=== PATIENT | male | born 1995 | race Caucasian/White ===

== ENCOUNTER 2020-07-04 10:29 | Emergency (ER) | payer BC ==
--- OUTSIDE RECORDS SUMMARY | 2020-07-04 10:32 | XMS REPORT | Continuity of Care Document ---
:1995 Author Organization [facility] t Address [address] [place] [address] Care Team Providers Name Role Phone Los CNC TECHNICIAN Attending Clinician Court PAC, S Attending Clinician Doctor Unassigned, Name Attending Clinician Unavailable Provider, Urgent Care Attending Clinician Unavailable Jillian HODGES M Attending Clinician Unavailable Lab, Fam Pob I Attending Clinician Unavailable Problems This patient has no known problems. Allergies, Adverse Reactions, Alerts This patient has no known allergies or adverse reactions. Medications This patient has no known medications. Procedures This patient has no known procedures. Encounters Start End Encounter Admission Attending Care Care Encounter Source Date/Time Date/Time Type Type Clinicians Facility Department ID 2020-05-26 2020-05-26 [facility] [id number] 18:51:00 21:06:00 [place] [id number] [place] [id number] [place] [id number] 2020-05-04 2020-05-[address] [facility] [id number] 16:51:00 17:21:00 [place] [id number] [place] [id number] [place] [id number] 2020-05-04 2020-05-04 Orders Doctor DEE [id number] 00:00:00 00:00:00 Only Unassigned, QUITA [id number] [place] [facility] [id number] 2020-02-05 2020-02-05 Urgent Provider, [facility] [id number] 15:19:42 15:47:23 [facility] [id number] Care [place] [id number] [place] [phone] nal 0[address] One 2019-10-30 2019-10-30 Telephone Tawnya Walsh [id number] 00:00:00 00:00:00 [place] [id number] [facility] [id number] 2019-10-28 2019-10-28 Laboratory Lab, [facility] [id number] 13:48:25 14:08:25 Only Fam Pob I Health [id number] [place] [id number] [place] [phone] nal 044 [address] 2019-10-28 2019-10-28 Letter Doctor DEE [id number] 00:00:00 00:00:00 (Out) Unassigned, QUITA [id number] [place] [facility] [id number] Results This patient has no known results.
[2020-07-04 11:53] LABS: Absolute Lymphocytes (CBC) 2.4 K/uL (0.7-4.9); Basophils % 0.1 % (0-1.3); Hematocrit 46.6 % (39.6-49.0); Lymphocytes % 15.3 % (15.3-44.8); MPV 7.6 fL (7.6-11.3); RBC Red Blood Cell Count 5.28 M/uL (4.33-5.43)
[2020-07-04 11:55] LABS: ALT/SGPT 96 U/L (12-78); AST/SGOT 12 U/L (15-37); Albumin 3.7 g/dL (3.4-5.0); Alkaline Phosphatase 73 U/L (45-117); BUN Blood Urea Nitrogen 18 mg/dL (7-18); Bicarbonate 28 mmol/L (21-32); Bilirubin Direct 0.1 mg/dL (0-0.2); Bilirubin Total 0.3 mg/dL (0.2-1.0); Glucose Level 91 mg/dL (74-106); Lipase 82 U/L (73-393); Potassium 3.7 mmol/L (3.5-5.1); Protein, Total 7.8 g/dL (6.4-8.2); Sodium Level 139 mmol/L (136-145)
[2020-07-04 11:56] LABS: Urine Blood Negative (Negative); Urine Glucose Negative (Negative); Urine Protein Negative (Negative); Urine Specific Gravity >=1.030 (1.005-1.030); Urine pH 5.5 (5.0-7.0)
[2020-07-04] MEDS ORDERED: MORPHINE 4 MG/ML SYR ONE (12:24)
[2020-07-04] MEDS ORDERED: ONDANSETRON 4 MG/2 ML VIAL ONE (12:24)
[2020-07-04] MEDS ORDERED: NA CHLORIDE 0.9% 1,000 ML ONE (12:24)
--- NOTE | 2020-07-04 12:55 | RAD REPORT ---
EXAM DESCRIPTION: CTAbdomen Pelvis W Contrast - 07/04/2020 12:20 pm CLINICAL HISTORY: Abdominal pain. ABD PAIN COMPARISON: CT ABD PELVIS W CONTRAST dated 01/29/2015 TECHNIQUE: Biphasic CT imaging of the abdomen and pelvis was performed with 100 ml non-ionic IV cont rast. All CT scans are performed using dose optimization technique as appropriate and may include automated exposure control or mA/KV adjustment according to patient size. FINDINGS: The lung bases are clear. The liver, spleen, pancreas, adrenal glands and kidneys are within normal limits. Cholecystectomy cli ps. No bowel obstruction, free air, free fluid or abscess. The appendix is not identified as a discrete structure, however, no secondary findings of appendicitis are identified. No evidence of significan t lymphadenopathy. No suspicious bony findings. IMPRESSION: No acute intra-abdominal or pelvic finding.
--- NOTE | 2020-07-04 13:31 | EDPHYS ---
Physician Documentation [facility] Name: Xavier Lindo Age: 24 yrs Sex: Male : 1995 Arrival Date: 07/04/2020 Time: 10:31 Bed 17 Private MD: Sanjiv Gayle E ED Physician Aminata Thurston HPI: 07/04 15:04 This 24 yrs old Male presents to ER via Ambulatory with complaints of kb Abdominal Pain, Nausea, feels like passing out. 15:04 Onset: The symptoms/episode began/occurred yesterday. kb 15:05 The patient presents with abdominal pain in the right upper quadrant. The symptoms do kb not radiate. Associated signs and symptoms: Pertinent positives: nausea, Pertinent negatives: constipation, diarrhea, fever, vomiting. The symptoms are described as constant. Modifying factors: The symptoms are alleviated by nothing, the symptoms are aggravated by nothing. Severity of pain: At its worst the pain was moderate in the emergency department the pain is unchanged. The patient has not experienced similar symptoms in the past. The patient has not recently seen a physician. Historical: - Allergies: 10:53 No Known Allergies; aa5 - Home Meds: 10:53 Prednisone Oral [Active]; aa5 - PMHx: 10:53 None; aa5 - PSHx: 10:53 Cholecystectomy; aa5 - Immunization history:: Adult Immunizations unknown. - Social history:: Smoking status: Reported history of juuling and/or vaping. ROS: 15:03 Constitutional: Negative for fever, chills, and weight loss, Cardiovascular: Negative kb for chest pain, palpitations, and edema, Respiratory: Negative for shortness of breath, cough, wheezing, and pleuritic chest pain, MS/Extremity: Negative for injury and deformity, Skin: Negative for injury, rash, and discoloration, Neuro: Negative for headache, weakness, numbness, tingling, and seizure. 15:03 Abdomen/GI: Positive for abdominal pain, nausea, Negative for vomiting, diarrhea. Exam: 15:04 Constitutional: This is a well developed, well nourished patient who is awake, alert, kb and in no acute distress. Head/Face: Normocephalic, atraumatic. Cardiovascular: Regular rate and rhythm with a normal S1 and S2. No gallops, murmurs, or rubs. No pulse deficits. Respiratory: Respirations even and unlabored. No increased work of breathing, no retractions or nasal flaring. Skin: Warm, dry with normal turgor. Normal color. MS/ Extremity: Pulses equal, no cyanosis. Neurovascular intact. Full, normal range of motion. Neuro: Awake and alert, GCS 15, oriented to person, place, time, and situation. Moves all extremities. Normal gait. 15:04 Abdomen/GI: Inspection: abdomen appears normal, Bowel sounds: normal, in all quadrants, Palpation: soft, in all quadrants, moderate abdominal tenderness, in the right upper quadrant and right lower quadrant. Vital Signs: 10:44 BP 152 / 95; Pulse 85; Temp 98.6; Pulse Ox 99% ; Weight 86.64 kg; Height 5 ft. 8 in. aa5 (172.72 cm); 11:57 BP 143 / 88; Pulse 81; Resp 17; Pulse Ox 96% ; rb3 12:42 BP 143 / 90; Pulse 85; Resp 17; Pulse Ox 96% ; rb3 13:40 BP 132 / 91; Pulse 79; Resp 17; Pulse Ox 97% ; rb3 10:44 Body Mass Index 29.04 (86.64 kg, 172.72 cm) aa5 MDM: 11:06 Patient medically screened. 15:03 Data reviewed: vital signs, nurses notes. Data interpreted: Pulse oximetry: on room air kb is 97 %. Interpretation: normal. Counseling: I had a detailed discussion with the patient and/or guardian regarding: the historical points, exam findings, and any diagnostic results supporting the discharge/admit diagnosis, lab results, radiology results, the need for outpatient follow up, a family practitioner, to return to the emergency department if symptoms worsen or persist or if there are any questions or concerns that arise at home. 15:04 Response to treatment: the patient's symptoms have resolved after treatment, the kb patient's pain is gone. 07/04 10:54 Order name: Basic Metabolic Panel 07/04 10:54 Order name: CBC with Diff 07/04 10:54 Order name: Hepatic Function 07/04 10:54 Order name: Lipase kb 07/04 11:55 Order name: Basic Metabolic Panel; Complete Time: 11:56 EDMS 07/04 11:55 Order name: Liver (Hepatic) Function; Complete Time: 11:56 EDUT 07/04 11:55 Order name: Lipase; Complete Time: 11:56 EDUT 07/04 11:56 Order name: CBC with Automated Diff; Complete Time: 11:56 EDUT 07/04 11:57 Order name: Urine Dipstick-Ancillary; Complete Time: 11:57 EDUT 07/04 11:57 Order name: CT Abd/Pelvis - IV Contrast Only kb 07/04 12:11 Order name: Abdomen ; Complete Time: 13:03 EDUT 07/04 10:54 Order name: IV Saline Lock; Complete Time: 11:30 kb 07/04 10:54 Order name: Labs collected and sent; Complete Time: 11:30 kb 07/04 10:54 Order name: Urine Dipstick-Ancillary (obtain specimen); Complete Time: 11:56 kb Administered Medications: 12:11 Drug: NS 0.9% 1000 ml Route: IV; Rate: 1000 ml; Site: right antecubital; rb3 12:12 Drug: morphine 4 mg Route: IVP; Site: right antecubital; rb3 12:12 Drug: Zofran (Ondansetron) 4 mg Route: IVP; Site: right antecubital; rb3 Disposition: 07/04/20 13:30 Discharged to Home. Impression: Upper abdominal pain, unspecified. - Condition is Stable. - Discharge Instructions: Abdominal Pain, Adult, Zbyg-is-Vkua. - Prescriptions for Bentyl 20 mg Oral Tablet - take 1 tablet by ORAL route every 6 hours As needed; 20 tablet. Zofran 4 mg Oral Tablet - take 1 tablet by ORAL route every 6 hours As needed; 20 tablet. - Medication Reconciliation Form, Thank You Letter, Antibiotic Education, Prescription Opioid Use form. - Follow up: Private Physician; When: 2 - 3 days; Reason: Recheck today's complaints, Continuance of care, Re-evaluation by your physician. Follow up: Emergency Department; When: As needed; Reason: Worsening of condition. Addendum: 07/07/2020 20:19 Co-signature as Attending Physician, Aminata Thurston MD. m a2 Signatures: Dispatcher [facility] Lona Mark FNP-[place] WALTER-Dayana Garcia, RN RN aa5 Aminata Thurston MD MD ma2 Tsering Martin, RN RN rb3 Corrections: (The following items were deleted from the chart) 07/04 13:46 13:30 07/04/2020 13:30 Discharged to Home. Impression: Upper abdominal pain, rb3 unspecified. Condition is Stable. Forms are Medication Reconciliation Form, Thank You Letter, Antibiotic Education, Prescription Opioid Use. Follow up: Private Physician; When: 2 - 3 days; Reason: Recheck today's complaints, Continuance of care, Re-evaluation by your physician. Follow up: Emergency Department; When: As needed; Reason: Worsening of condition. kb 15:06 15:04 Onset: The symptoms/episode began/occurred this morning, kb kb
--- NOTE | 2020-07-04 13:31 | ER ---
Nurse's Notes [facility] Name: Xavier Lindo Age: 24 yrs Sex: Male : 1995 Arrival Date: 07/04/2020 Time: 10:31 Bed 17 Private MD: Sanjiv Gayle E Diagnosis: Upper abdominal pain, unspecified Presentation: 07/04 10:44 Chief complaint: Patient states: Having abdominal pain that started 5--21. C/O Nausea, aa5 right flank pain that radiates to back. [place] like passing out this morning. Coronavirus screen: Client denies travel out of the [place] in the last 14 days. chills, nausea, Client presents with at least one sign or symptom that may indicate coronavirus-19. Standard/surgical mask placed on the client. Ebola Screen: No symptoms or risks identified at this time. Initial Sepsis Screen: Does the patient meet any 2 criteria? No. Patient's initial sepsis screen is negative. Does the patient have a suspected source of infection? No. Patient's initial sepsis screen is negative. Risk Assessment: Do you want to hurt yourself or someone else? Patient reports no desire to harm self or others. Onset of symptoms was July 03, 2020. 10:44 Method Of Arrival: Ambulatory aa5 10:44 Acuity: MURIEL 3 aa5 Historical: - Allergies: 10:53 No Known Allergies; aa5 - Home Meds: 10:53 Prednisone Oral [Active]; aa5 - PMHx: 10:53 None; aa5 - PSHx: 10:53 Cholecystectomy; aa5 - Immunization history:: Adult Immunizations unknown. - Social history:: Smoking status: Reported history of juuling and/or vaping. Screenin:05 Abuse screen: Denies threats or abuse. Nutritional screening: No deficits noted. rb3 Tuberculosis screening: No symptoms or risk factors identified. Fall Risk None identified. Assessment: 11:05 General: Appears in no apparent distress. Behavior is calm, cooperative, Reports chills rb3 for x 1 day. Denies fever. Pain: Complains of pain in epigastric area, right upper quadrant and left upper quadrant Pt. reports that it did radiate to the right low back, but the right flank pain has subsided. Neuro: Level of Consciousness is awake, alert, obeys commands, Oriented to person, place, time, situation. Cardiovascular: Patient's skin is warm and dry. Respiratory: Airway is patent Respiratory effort is even, unlabored, Respiratory pattern is regular, symmetrical. GI: Abdomen is non-distended, Reports diarrhea, nausea. : Denies burning with urination. 11:57 Reassessment: Patient appears in no apparent distress at this time. No changes from rb3 previously documented assessment. 12:12 Reassessment: Pt. went to CT. rb3 12:36 Reassessment: Patient appears in no apparent distress at this time. Patient and/or rb3 family updated on plan of care and expected duration. Pain level reassessed. Patient is alert, oriented x 3, equal unlabored respirations, skin warm/dry/pink. 13:30 Reassessment: Patient appears in no apparent distress at this time. No changes from rb3 previously documented assessment. Vital Signs: 10:44 BP 152 / 95; Pulse 85; Temp 98.6; Pulse Ox 99% ; Weight 86.64 kg; Height 5 ft. 8 in. aa5 (172.72 cm); 11:57 BP 143 / 88; Pulse 81; Resp 17; Pulse Ox 96% ; rb3 12:42 BP 143 / 90; Pulse 85; Resp 17; Pulse Ox 96% ; rb3 13:40 BP 132 / 91; Pulse 79; Resp 17; Pulse Ox 97% ; rb3 10:44 Body Mass Index 29.04 (86.64 kg, 172.72 cm) aa5 ED Course: 10:31 Patient arrived in ED. am2 10:31 Sanjiv Gayle MD is Private Physician. am2 10:31 [facility]C [facility]. kb 10:31 Aminata Thurston MD is Attending Physician. kb 10:52 Triage completed. aa5 10:53 Arm band placed on. aa5 11:05 Tsering Martin, RN is Primary Nurse. rb3 11:05 Patient has correct armband on for positive identification. Bed in low position. Call rb3 light in reach. Side rails up X 1. Pulse ox on. NIBP on. 11:27 Inserted saline lock: 20 gauge in right antecubital area, using aseptic technique. rb3 Blood collected. 12:20 Abdomen In Process Unspecified. EDMS 13:45 No provider procedures requiring assistance completed. IV discontinued, intact, rb3 bleeding controlled, No redness/swelling at site. Pressure dressing applied. Administered Medications: 12:11 Drug: NS 0.9% 1000 ml Route: IV; Rate: 1000 ml; Site: right antecubital; rb3 12:12 Drug: morphine 4 mg Route: IVP; Site: right antecubital; rb3 12:12 Drug: Zofran (Ondansetron) 4 mg Route: IVP; Site: right antecubital; rb3 Outcome: 13:30 Discharge ordered by . lupe 13:45 Discharged to home ambulatory. rb3 13:45 Condition: stable 13:45 Discharge instructions given to patient, Instructed on discharge instructions, follow up and referral plans. medication usage, Demonstrated understanding of instructions, follow-up care, medications, Prescriptions given X 2. 13:46 Patient left the ED. rb3 Signatures: Dispatcher [employer] [facility] Lona Mark, DIETETICS PROFESSOR-C DIETETICS PROFESSOR-Dayana Garcia, RN RN aa5 Betty Bates Rebecca, RN RN rb3
[2020-07-04 13:57] VITALS: TEMP 98.6
[2020-07-04 14:01] VITALS: BP 132/91; O2SAT 97
== END 2020-07-04 13:46 | disposition home or self-care (01) ==
LOC: ER 10:29 → EEVIPCON 10:29 → ER 13:46
DX: R10.11 Right upper quadrant pain (principal); F17.290 Nicotine dependence, other tobacco product, uncomplicated; R11.0 Nausea
CPT/HCPCS: 85025; 80048; 36415; 80076; 81003; 83690; 74177; 96375; 96374; 99284; Q9967; J7030; J2405